=== PATIENT | male | born 1960 | race Caucasian/White ===

== ENCOUNTER 2020-06-08 18:50 | Inpatient (IN) | payer BC, OTHER ==
[~2020-06-08 18:50] MED LIST: Iopamidol 370 76% 100 ML VIAL ONE; Iopamidol 370 76% 50 ML VIAL FS ONE
[2020-06-08] MEDS ORDERED: Heparin 25,000 units/D5W 0 ML ONE (19:12)
[2020-06-08] MEDS ORDERED: TICAGRELOR 90 MG TABLET ONE (19:17)
[2020-06-08] MEDS ORDERED: Heparin 10,000 UNITS/ 10 ML VIAL ONE (19:31)
[2020-06-08] MEDS ORDERED: Acetaminophen/Codeine 30-300mg Tablet PO PRN (19:43)
[2020-06-08] MEDS ORDERED: Mag-Al 1200 mg/1200 mg/30 ML UDCUP PO PRN (19:43)
[2020-06-08] MEDS ORDERED: Milk Of Magnesia 30 ML UDCUP PO PRN (19:43)
[2020-06-08] MEDS ORDERED: Nitroglycerin 0.4 MG TAB (25 Tab Bottle) SL PRN (19:43)
[2020-06-08] MEDS ORDERED: traMADol HCl 50 MG TAB PO PRN (19:43)
[2020-06-08] MEDS ORDERED: Morphine 2 MG/ML VIAL SLOW IVP PRN (19:43)
[2020-06-08] MEDS ORDERED: Zolpidem Tartrate 5 MG TAB PO PRN (19:43)
[2020-06-08] MEDS ORDERED: Sodium Chloride 0.9% 500 ML IV SCH (20:00)
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
[2020-06-08 22:15] LABS: #Basophils 0.1 thou/uL (0.0-0.2); #Lymphocytes 1.5 thou/uL (1.20-3.40); #Monocytes 0.5 thou/uL (0.11-0.59); #Neutrophils 15.3 thou/uL (1.40-6.50); %Basophils 0.3 % (0.0-1.0); %Eosinophils 0.1 % (0.0-10.0); %Lymphocytes 8.8 % (21.0-51.0); %Neutrophils 87.8 % (42.0-75.0); Hemoglobin 13.9 g/dL (14.0-18.0); Mean Corpuscular HGB CONC 33.2 g/dL (32.0-36.0); Mean Corpuscular Hemoglobin 29.9 pg (27.0-31.0); Mean Corpuscular Volume 90.1 fL (78.0-98.0); Mean Platelet Volume 8.2 fL (7.4-10.4); Platelet Count 212 thou/uL (130-400); RBC Distribution Width 12.6 % (11.5-14.5); Red Blood Cell (RBC) Count 4.64 mill/uL (4.70-6.10); White Blood Cell (WBC) Count 17.5 thou/uL (4.8-10.8)
[2020-06-08 22:37] LABS: ALT (SGPT) 37 U/L (8-55); AST (SGOT) 39 U/L (5-34); Albumin 3.5 g/dL (3.4-4.8); Alkaline Phosphatase 79 U/L (40-110); Anion Gap 12 mmol/L (10-20); BUN (Urea Nitrogen) 13 mg/dL (8.4-25.7); Bilirubin, Total 0.4 mg/dL (0.2-1.2); Calc. Creatinine Clearance 0 mL/min (70-130); Calcium 7.8 mg/dL (7.8-10.44); Carbon Dioxide 23 mmol/L (23-31); Chloride 107 mmol/L (98-107); Globulin 2.3 g/dL (2.4-3.5); Glucose 111 mg/dL (80-115); Potassium 4.3 mmol/L (3.5-5.1); Protein, Total 5.8 g/dL (5.8-8.1); Sodium 138 mmol/L (136-145)
[2020-06-08 23:02] LABS: CKMB 15.9 ng/mL (0-6.6); Troponin I 0.827 ng/mL (< 0.028)
--- NOTE | 2020-06-08 23:31 | RAD ---
Chest one view HISTORY: Chest pain. FINDINGS: Cardiac silhouette is magnified by projection. Pulmonary vasculature is unremarkable. Mediastinum is midline. No airspace consolidation or evidence of pneumothorax. Left apex is partially excluded. IMPRESSION : No abnormalities are demonstrated.
[2020-06-09 05:28] LABS: #Lymphocytes 1.3 thou/uL (1.20-3.40); #Monocytes 0.8 thou/uL (0.11-0.59); #Neutrophils 11.5 thou/uL (1.40-6.50); %Basophils 0.1 % (0.0-1.0); %Eosinophils 0.1 % (0.0-10.0); %Lymphocytes 9.4 % (21.0-51.0); %Monocytes 6.1 % (0.0-10.0); %Neutrophils 84.3 % (42.0-75.0); Hemoglobin 13.6 g/dL (14.0-18.0); Mean Corpuscular HGB CONC 33.1 g/dL (32.0-36.0); Mean Corpuscular Hemoglobin 29.8 pg (27.0-31.0); Mean Corpuscular Volume 89.8 fL (78.0-98.0); Mean Platelet Volume 8.4 fL (7.4-10.4); Platelet Count 208 thou/uL (130-400); RBC Distribution Width 12.6 % (11.5-14.5); Red Blood Cell (RBC) Count 4.58 mill/uL (4.70-6.10); White Blood Cell (WBC) Count 13.7 thou/uL (4.8-10.8)
[2020-06-09 05:49] LABS: ALT (SGPT) 41 U/L (8-55); AST (SGOT) 71 U/L (5-34); Albumin 3.6 g/dL (3.4-4.8); Alkaline Phosphatase 76 U/L (40-110); Anion Gap 13 mmol/L (10-20); BUN (Urea Nitrogen) 13 mg/dL (8.4-25.7); Bilirubin, Total 0.5 mg/dL (0.2-1.2); Calc. Creatinine Clearance 0 mL/min (70-130); Calcium 8.1 mg/dL (7.8-10.44); Carbon Dioxide 21 mmol/L (23-31); Cardiac Risk 4.3 (Less than 4.5); Chloride 105 mmol/L (98-107); Cholesterol 190 mg/dl (< 200 Desired); Globulin 2.3 g/dL (2.4-3.5); Glucose 114 mg/dL (80-115); HDL Cholesterol 44 mg/dL (>60 Neg Risk); LDL Cholesterol, Calculated 126 mg/dL; Protein, Total 5.9 g/dL (5.8-8.1); Sodium 135 mmol/L (136-145); Triglycerides 99 mg/dL (Less than 150)
[2020-06-09 05:55] LABS: CKMB 137.5 ng/mL (0-6.6); Troponin I 6.073 ng/mL (< 0.028)
[2020-06-09 11:03] LABS: CKMB 259.1 ng/mL (0-6.6)
[2020-06-09] MEDS ORDERED: Iopamidol-370 76% 500 ML 1 ML ONE (11:17)
[2020-06-09] MEDS: FLUoxetine HCl 20 MG CAP PO SCH (11:40)
[2020-06-09] MEDS: Aspirin Chewable 81 MG TAB PO SCH ×2 (12:45→17:20)
[2020-06-09] MEDS ORDERED: Aspirin Chewable 81 MG TAB ONE (12:49)
--- NOTE | 2020-06-09 13:54 | PDOC.CPN ---
- Subjective Date: 06/09/20 Time: 13:50 Interval history: He is doing better today. No angina. no SOB. HR borderline low and in the 40's while sleeping but he is in sinus. - Review of Systems General: denies: fever/chills, weight/appetite/sleep changes, night sweats, fatigue Respiratory: denies: cough, congestion, shortness of breath, exercise intolerance Cardiovascular: denies: chest pain, palpitation, edema, paroxysmal nocturnal dyspnea, orthopnea Gastrointestinal: denies: nausea, vomiting, diarrhea, constipation, abd pain, GI bleeding Musculoskeletal: denies: pain, tenderness, stiffness, swelling, arthritis/arthralgias Neurological: denies: numbness, syncope, seizure, weakness - Objective Allergies/Adverse Reactions: Allergies Allergy/AdvReac Type Severity Reaction Status Date / Time Penicillins Allergy Unverified 06/08/20 22:01 Visit Medications: Current Medications Acetaminophen/Codeine Phosphate (Acetaminophen/Codeine 30-300mg Tablet) 1 tab PO Q4H PRN PRN Reason: Mild Pain (1-3) Al Hydroxide/Mg Hydroxide (Mag-Al 1200 Mg/1200 Mg/30 Ml Udcup) 30 ml PO Q3H PRN PRN Reason: Indigestion Aspirin (Aspirin Chewable 81 Mg Tab) 81 mg PO DAILY [facility] Last Admin: 06/09/20 12:45 Dose: 81 mg Documented by: Atorvastatin Calcium (Atorvastatin Calcium 40 Mg Tab) 80 mg PO HS [facility] Fluoxetine HCl (Fluoxetine Hcl 20 Mg Cap) 40 mg PO DAILY [facility] Last Admin: 06/09/20 11:40 Dose: 40 mg Documented by: Magnesium Hydroxide (Milk Of Magnesia 30 Ml Udcup) 30 ml PO Q12H PRN PRN Reason: Constipation Morphine Sulfate (Morphine 2 Mg/Ml Vial) 2 mg SLOW IVP Q4H PRN PRN Reason: Moderate Chest Pain (4-6) Nitroglycerin (Nitroglycerin 0.4 Mg Tab (25 Tab Bottle)) 0.4 mg SL Q5MIN PRN PRN Reason: Chest Pain Ticagrelor (Ticagrelor 90 Mg Tablet) 90 mg PO BID [facility] Tramadol HCl (Tramadol Hcl 50 Mg Tab) 50 mg PO Q6H PRN PRN Reason: Pain Zolpidem Tartrate (Zolpidem Tartrate 5 Mg Tab) 5 mg PO HSPRN PRN PRN Reason: Insomnia Vital Signs & Weight: Vital Signs Temp Pulse Pulse Pulse Resp BP BP 06/09/20 12:00 98.8 F 71 16 06/09/20 11:27 56 L 59 L 109/82 117/76 06/09/20 11:00 58 L 26 H 06/09/20 09:00 55 L 17 06/09/20 08:00 97.2 F L 52 L 14 06/09/20 06:17 55 L 18 06/09/20 04:17 97.1 F L 14 BP Pulse Ox Pulse Ox Pulse Ox 06/09/20 12:00 101/80 97 06/09/20 11:27 97 95 06/09/20 11:00 109/82 97 06/09/20 09:00 112/77 98 06/09/20 08:00 93/59 L 98 06/09/20 06:17 100/57 L 06/09/20 04:17 Weight 3.28 oz - Physical Exam General: alert & oriented x3 HEENT: mucus membranes moist Neck: supple neck Cardiac: regular rate and rhythm Lungs: clear to auscultation Neuro: grossly intact Abdomen: active bowel sounds Extremities: no edema Skin: clear Musculoskeletal: no pain - Labs Result Diagrams: 06/09/20 05:01 06/09/20 05:01 Troponin/CKMB CK-MB (CK-2) 259.1 ng/mL (0-6.6) H* 06/09/20 10:02 Troponin I 15.941 ng/mL (< 0.028) H* 06/09/20 10:02 - Telemetry Sinus rhythms and dysrhythmias: sinus bradycardia (< 50 bpm) - Assessment/Plan Assessment/Plan: 1. Inferior STEMI 2. CHB, resolved immediately after revascularization. 3. Frequent PVC's post [place]. 4. Dilated aortic root 5. Tobacco use. PLAN: - Continue Brilinta and ASA 81 - Cannot add BB or ACEI due to low HR and borderline low BP. - Will get CT angio of the chest as his root seemed large on the echo. - Will transfer to telemetry. - Likely home Friday if no major arrhythmias.
--- NOTE | 2020-06-09 16:02 | CT ---
CT ANGIO OF CHEST PERFORMED WITH INTRAVNEOUS CONTRAST ENHANCEMENT WITH 3D RECONSTRUCTIONS: 06/09/20 HISTORY: Recent cardiac stent placement. Abnormal echo showed possible aneurysm in the thoracic aorta. The lungs are clear of any infiltrative process. No pleural effusion or pulmonary nodules. No significant mediastinal or hilar adenopathy. The ascending aorta has a dimension of 3.7 cm. The de scending thoracic aorta measures 2.6 cm. No dissection. The visualized liver parenchyma shows no focal findings. Right and left adrenal glands are normal. IMPRESSION: No evidence of thoracic aneurysm. POS: ELÍAS
[2020-06-09] MEDS: TICAGRELOR 90 MG TABLET PO SCH ×2 (17:20→22:38)
[2020-06-09] MEDS: Atorvastatin Calcium 40 MG TAB PO SCH ×2 (17:20→22:38)
[2020-06-09 18:12] VITALS: BMI 29.2
[2020-06-09] MEDS ORDERED: traZODone HCl 150 MG TAB PO PRN (21:31)
[2020-06-10 05:11] LABS: SARS-CoV-2 PCR by NAA Not Detected (NotDetected)
--- NOTE | 2020-06-10 09:12 | EKG ---
Test Reason : Blood Pressure : / mmHG Vent. Rate : 047 BPM Atrial Rate : 047 BPM P-R Int : 252 ms QRS Dur : 138 ms QT Int : 506 ms P-R-T Axes : 066 039 073 degrees QTc Int : 447 ms Marked sinus bradycardia with 1st degree A-V block Right bundle branch block Abnormal ECG No previous ECGs available Confirmed by MARTIN MARQUES, DR. Cage ([id number]) on 06/10/2020 9:11:42 AM Referred By: SABRA Confirmed By:DR. Fauzia SALAZAR MD
[2020-06-10] MEDS: Aspirin Chewable 81 MG TAB PO SCH (09:24)
[2020-06-10] MEDS: TICAGRELOR 90 MG TABLET PO SCH ×2 (09:24→21:23)
[2020-06-10] MEDS: FLUoxetine HCl 20 MG CAP PO SCH (09:24)
--- NOTE | 2020-06-10 10:43 | PDOC.CPN ---
- Subjective Date: 06/10/20 Time: 09:30 Interval history: No complaints. No overnight events. Feels great. - Review of Systems General: denies: fever/chills, weight/appetite/sleep changes, night sweats, fatigue Respiratory: denies: cough, congestion, shortness of breath, exercise intolerance Cardiovascular: denies: chest pain, palpitation, edema, paroxysmal nocturnal dyspnea, orthopnea Gastrointestinal: denies: nausea, vomiting, diarrhea, constipation, abd pain, GI bleeding Musculoskeletal: denies: pain, tenderness, stiffness, swelling, arthritis/arthr algias Neurological: denies: numbness, syncope, seizure, weakness - Objective Allergies/Adverse Reactions: Allergies Allergy/AdvReac Type Severity Reaction Status Date / Time Penicillins Allergy Unknown Verified 06/09/20 18:14 Sulfa (Sulfonamide Allergy Verified 06/09/20 18:12 Antibiotics) Visit Medications: Current Medications Acetaminophen/Codeine Phosphate (Acetaminophen/Codeine 30-300mg Tablet) 1 tab PO Q4H PRN PRN Reason: Mild Pain (1-3) Al Hydroxide/Mg Hydroxide (Mag-Al 1200 Mg/1200 Mg/30 Ml Udcup) 30 ml PO Q3H PRN PRN Reason: Indigestion Aspirin (Aspirin Chewable 81 Mg Tab) 81 mg PO DAILY [facility] Last Admin: 06/10/20 09:24 Dose: 81 mg Documented by: Atorvastatin Calcium (Atorvastatin Calcium 40 Mg Tab) 80 mg PO [facility] Last Admin: 06/09/20 22:38 Dose: 80 mg Documented by: Fluoxetine HCl (Fluoxetine Hcl 20 Mg Cap) 40 mg PO DAILY [facility] Last Admin: 06/10/20 09:24 Dose: 40 mg Documented by: Magnesium Hydroxide (Milk Of Magnesia 30 Ml Udcup) 30 ml PO Q12H PRN PRN Reason: Constipation Morphine Sulfate (Morphine 2 Mg/Ml Vial) 2 mg SLOW IVP Q4H PRN PRN Reason: Moderate Chest Pain (4-6) Nitroglycerin (Nitroglycerin 0.4 Mg Tab (25 Tab Bottle)) 0.4 mg SL Q5MIN PRN PRN Reason: Chest Pain Ticagrelor (Ticagrelor 90 Mg Tablet) 90 mg PO BID [facility] Last Admin: 06/10/20 09:24 Dose: 90 mg Documented by: Tramadol HCl (Tramadol Hcl 50 Mg Tab) 50 mg PO Q6H PRN PRN Reason: Pain Trazodone HCl (Trazodone Hcl 150 Mg Tab) 150 mg PO HS PRN PRN Reason: Insomnia Last Admin: 06/09/20 22:39 Dose: 150 mg Documented by: Zolpidem Tartrate (Zolpidem Tartrate 5 Mg Tab) 5 mg PO HSPRN PRN PRN Reason: Insomnia Vital Signs & Weight: Vital Signs Temp Pulse Resp BP Pulse Ox 06/10/20 08:00 98.7 F 83 16 120/61 96 06/10/20 03:35 99.6 F 83 18 112/70 95 Weight 204 lb - Physical Exam General: alert & oriented x3, appears well, no apparent distress HEENT: mucus membranes moist Neck: supple neck Cardiac: regular rate and rhythm, no murmur Lungs: clear to auscultation Neuro: grossly intact Abdomen: soft, non-tender Extremities: no cyanosis, no clubbing, no edema Skin: clear - Labs Result Diagrams: 06/09/20 05:01 06/09/20 05:01 Troponin/CKMB CK-MB (CK-2) 259.1 ng/mL (0-6.6) H* 06/09/20 10:02 Troponin I 15.941 ng/mL (< 0.028) H* 06/09/20 10:02 - Telemetry Sinus rhythms and dysrhythmias: sinus rhythm - Assessment/Plan Assessment/Plan: 1. Inferior STEMI 2. CHB, resolved immediately after revascularization. 3. CAD s/p PVI/SCOTTIE - RCA 4. Frequent PVC's post [place]. 5. Dilated aortic root 6. Tobacco use. doing well overall. Up walking regularly. No arrhythmias or nancy overnight. CTA with dilated aortic root, but no aneurysm. Will monitor today and if remains stable d/c tomorrow.
[2020-06-10] MEDS: Atorvastatin Calcium 40 MG TAB PO SCH (21:20)
[2020-06-11] MEDS: TICAGRELOR 90 MG TABLET PO SCH (09:17)
[2020-06-11] MEDS: Aspirin Chewable 81 MG TAB PO SCH (09:17)
[2020-06-11] MEDS: FLUoxetine HCl 20 MG CAP PO SCH (09:17)
--- NOTE | 2020-06-11 10:32 | PDOC.CPN ---
- Subjective Date: 06/11/20 Time: 09:15 Interval history: Patient feels good. No complaints overnight. Rhythm stable. - Review of Systems General: denies: fever/chills, weight/appetite/sleep changes, night sweats, fatigue Respiratory: denies: cough, congestion, shortness of breath, exercise intolerance Cardiovascular: denies: chest pain, palpitation, edema, paroxysmal nocturnal dyspnea, orthopnea Gastrointestinal: denies: nausea, vomiting, diarrhea, constipation, abd pain, GI bleeding Musculoskeletal: denies: pain, tenderness, stiffness, swelling, art hritis/arthralgias Neurological: denies: numbness, syncope, seizure, weakness - Objective Allergies/Adverse Reactions: Allergies Allergy/AdvReac Type Severity Reaction Status Date / Time Penicillins Allergy Unknown Verified 06/09/20 18:14 Sulfa (Sulfonamide Allergy Verified 06/09/20 18:12 Antibiotics) Visit Medications: Current Medications Acetaminophen/Codeine Phosphate (Acetaminophen/Codeine 30-300mg Tablet) 1 tab PO Q4H PRN PRN Reason: Mild Pain (1-3) Al Hydroxide/Mg Hydroxide (Mag-Al 1200 Mg/1200 Mg/30 Ml Udcup) 30 ml PO Q3H PRN PRN Reason: Indigestion Aspirin (Aspirin Chewable 81 Mg Tab) 81 mg PO DAILY [facility] Last Admin: 06/11/20 09:17 Dose: 81 mg Documented by: Atorvastatin Calcium (Atorvastatin Calcium 40 Mg Tab) 80 mg PO [facility] Last Admin: 06/10/20 21:20 Dose: 80 mg Documented by: Fluoxetine HCl (Fluoxetine Hcl 20 Mg Cap) 40 mg PO DAILY [facility] Last Admin: 06/11/20 09:17 Dose: 40 mg Documented by: Magnesium Hydroxide (Milk Of Magnesia 30 Ml Udcup) 30 ml PO Q12H PRN PRN Reason: Constipation Morphine Sulfate (Morphine 2 Mg/Ml Vial) 2 mg SLOW IVP Q4H PRN PRN Reason: Moderate Chest Pain (4-6) Nitroglycerin (Nitroglycerin 0.4 Mg Tab (25 Tab Bottle)) 0.4 mg SL Q5MIN PRN PRN Reason: Chest Pain Ticagrelor (Ticagrelor 90 Mg Tablet) 90 mg PO BID [facility] Last Admin: 06/11/20 09:17 Dose: 90 mg Documented by: Tramadol HCl (Tramadol Hcl 50 Mg Tab) 50 mg PO Q6H PRN PRN Reason: Pain Trazodone HCl (Trazodone Hcl 150 Mg Tab) 150 mg PO HS PRN PRN Reason: Insomnia Last Admin: 06/09/20 22:39 Dose: 150 mg Documented by: Zolpidem Tartrate (Zolpidem Tartrate 5 Mg Tab) 5 mg PO HSPRN PRN PRN Reason: Insomnia Vital Signs & Weight: Vital Signs Temp Pulse Resp BP Pulse Ox 06/11/20 07:42 97.9 F 74 16 101/70 96 06/11/20 03:23 99.0 F 81 20 101/66 93 L Weight 202 lb 1.6 oz - Physical Exam General: alert & oriented x3, appears well, no apparent distress HEENT: mucus membranes moist Neck: supple neck Cardiac: regular rate and rhythm, no murmur Lungs: clear to auscultation, no wheeze, rales, rhonchi Neuro: grossly intact Abdomen: soft, non-tender Musculoskeletal: no pain - Labs Result Diagrams: 06/09/20 05:01 06/09/20 05:01 Troponin/CKMB CK-MB (CK-2) 259.1 ng/mL (0-6.6) H* 06/09/20 10:02 Troponin I 15.941 ng/mL (< 0.028) H* 06/09/20 10:02 - Assessment/Plan Assessment/Plan: 1. Inferior STEMI 2. CHB, resolved immediately after revascularization. 3. CAD s/p PVI/SCOTTIE - RCA 4. Frequent PVC's post [place]. 5. Dilated aortic root 6. Tobacco use. Stable. Ok for discharge. No bblocker given history of CHB and nancy. Will arrange EVR as outpatient and add at that time. No driving for 3 months.
[2020-06-11 11:36] VITALS: BP 110/70; TEMP 97.2
== END 2020-06-11 13:32 | disposition home or self-care (01) | DRG 247 ==
LOC: SDC 18:50 → ERS 18:50 → PACU-TCU 19:13 → EDSTATUS 21:37 → 2NO 06-09 17:31
PROVIDERS: ADMIT Internal Medicine Cardiovascular Disease; ATTEND Internal Medicine Cardiovascular Disease
PROC: B2111ZZ Fluoroscopy of Multiple Coronary Arteries using Low Osmolar Contrast (ICD-10-PCS; principal; 2020-06-08)
PROC: 027034Z Dilation of Coronary Artery, One Artery with Drug-eluting Intraluminal Device, Percutaneous Approach (ICD-10-PCS; 2020-06-08)
PROC: B2151ZZ Fluoroscopy of Left Heart using Low Osmolar Contrast (ICD-10-PCS; 2020-06-08)
PROC: 4A023N7 Measurement of Cardiac Sampling and Pressure, Left Heart, Percutaneous Approach (ICD-10-PCS; 2020-06-08)
PROC: 02C03ZZ Extirpation of Matter from Coronary Artery, One Artery, Percutaneous Approach (ICD-10-PCS; 2020-06-08)
DX: I21.19 ST elevation (STEMI) myocardial infarction involving other coronary artery of inferior wall (principal); I44.2 Atrioventricular block, complete; J44.9 Chronic obstructive pulmonary disease, unspecified; F41.9 Anxiety disorder, unspecified; F32.9 Major depressive disorder, single episode, unspecified; M19.90 Unspecified osteoarthritis, unspecified site; I25.10 Atherosclerotic heart disease of native coronary artery without angina pectoris; F17.200 Nicotine dependence, unspecified, uncomplicated; Z20.822 Contact with and (suspected) exposure to COVID-19; Z79.51 Long term (current) use of inhaled steroids; Z79.82 Long term (current) use of aspirin; Z79.899 Other long term (current) drug therapy; Z88.0 Allergy status to penicillin; Z88.2 Allergy status to sulfonamides
CPT/HCPCS: 36415; 71045; 71275; 76942; 80053; 80061; 82553; 83880; 84443; 84484; 85025; 85347; 87635; 92941; 93005; 93010; 93306; 93458; 93798; 97139; C1760; C1874; C9606; J1644; Q9967; U0003; U0005

== ENCOUNTER 2020-07-12 15:04 | Inpatient (IN) | payer OTHER ==
[2020-07-12 15:52] LABS: #Basophils 0.1 thou/uL (0.0-0.2); #Eosinphils 0.1 thou/uL (0.0-0.7); #Lymphocytes 1.8 thou/uL (1.20-3.40); #Monocytes 0.9 thou/uL (0.11-0.59); #Neutrophils 9.4 thou/uL (1.40-6.50); %Basophils 0.7 % (0.0-1.0); %Lymphocytes 14.4 % (21.0-51.0); %Monocytes 7.2 % (0.0-10.0); %Neutrophils 76.8 % (42.0-75.0); Hemoglobin 15.3 g/dL (14.0-18.0); Mean Corpuscular HGB CONC 32.2 g/dL (32.0-36.0); Mean Corpuscular Hemoglobin 28.7 pg (27.0-31.0); Mean Platelet Volume 8.5 fL (7.4-10.4); Platelet Count 195 thou/uL (130-400); RBC Distribution Width 12.6 % (11.5-14.5); Red Blood Cell (RBC) Count 5.33 mill/uL (4.70-6.10); White Blood Cell (WBC) Count 12.3 thou/uL (4.8-10.8)
[2020-07-12 16:14] LABS: ALT (SGPT) 36 U/L (8-55); AST (SGOT) 27 U/L (5-34); Albumin 4.3 g/dL (3.4-4.8); Alkaline Phosphatase 127 U/L (40-110); Anion Gap 13 mmol/L (10-20); BUN (Urea Nitrogen) 13 mg/dL (8.4-25.7); Bilirubin, Total 0.4 mg/dL (0.2-1.2); Calc. Creatinine Clearance 0 mL/min (70-130); Calcium 9.4 mg/dL (7.8-10.44); Carbon Dioxide 27 mmol/L (23-31); Chloride 102 mmol/L (98-107); Glucose 95 mg/dL (80-115); Potassium 4.1 mmol/L (3.5-5.1); Protein, Total 7.3 g/dL (5.8-8.1); Sodium 138 mmol/L (136-145)
[2020-07-12 18:20] LABS: Bilirubin Negative (Negative); Blood, Urine Negative (Negative); Clarity Clear (Clear); Glucose, Urine (Dipstick) Normal (Negative); Ketone, Urine Negative (Negative); Leukocyte Negative Leu/uL (Negative); Nitrite Negative (Negative); Protein, Urine (Dipstick) Negative (Neg-Trace); Specific Gravity, Urine 1.009 (1.002-1.036); Urobilinogen Normal mg/dL (Less than 2); pH, Urine 6.5 (5.0-9.0)
[2020-07-12 18:30] LABS: Amphetamine Not Detected (NotDetected); Barbiturates Screen Not Detected (NotDetected); Benzodiazepine Screen Not Detected (NotDetected); Cocaine Metabolite Screen Not Detected (NotDetected); Medtox Control Line Valid? VALID (VALID); Medtox Reader # READER 4; Methadone Not Detected (NotDetected); Methamphetamine Not Detected (NotDetected); Opiate Screen Not Detected (NotDetected); Oxycodone Screen Not Detected (NotDetected); Phencyclidine (PCP) Not Detected (NotDetected); THC/Cannabinoid Screen Not Detected (NotDetected); Tricyclic Screen Not Detected (NotDetected)
[2020-07-12 18:50] LABS: CKMB 2.7 ng/mL (0-6.6)
[2020-07-12 22:55] VITALS: BMI 29.4
[2020-07-12 23:24] LABS: Troponin I 0.018 ng/mL (< 0.028)
[2020-07-13] MEDS ORDERED: Acetaminophen 650 MG Suppository PR PRN (01:21)
[2020-07-13] MEDS ORDERED: Acetaminophen 325 MG TAB PO PRN (01:21)
[2020-07-13 01:43] LABS: Troponin I 0.015 ng/mL (< 0.028)
[2020-07-13] MEDS ORDERED: Albuterol 200 PUFF (6.7GM INHALER) INH PRN (04:05)
[2020-07-13 05:06] LABS: #Basophils 0.1 thou/uL (0.0-0.2); #Eosinphils 0.2 thou/uL (0.0-0.7); #Lymphocytes 2.5 thou/uL (1.20-3.40); #Monocytes 0.8 thou/uL (0.11-0.59); #Neutrophils 4.2 thou/uL (1.40-6.50); %Eosinophils 2.2 % (0.0-10.0); %Lymphocytes 32.7 % (21.0-51.0); %Monocytes 9.8 % (0.0-10.0); %Neutrophils 54.3 % (42.0-75.0); Hemoglobin 14.4 g/dL (14.0-18.0); Mean Corpuscular Hemoglobin 29.5 pg (27.0-31.0); Mean Corpuscular Volume 89.4 fL (78.0-98.0); Mean Platelet Volume 8.5 fL (7.4-10.4); Platelet Count 182 thou/uL (130-400); RBC Distribution Width 12.4 % (11.5-14.5); Red Blood Cell (RBC) Count 4.87 mill/uL (4.70-6.10); White Blood Cell (WBC) Count 7.7 thou/uL (4.8-10.8)
[2020-07-13 05:27] LABS: Anion Gap 11 mmol/L (10-20); BUN (Urea Nitrogen) 14 mg/dL (8.4-25.7); Calc. Creatinine Clearance 123 mL/min (70-130); Calcium 8.7 mg/dL (7.8-10.44); Carbon Dioxide 26 mmol/L (23-31); Chloride 105 mmol/L (98-107); Glucose 106 mg/dL (80-115); Magnesium 1.9 mg/dL (1.6-2.6); Potassium 3.5 mmol/L (3.5-5.1); Sodium 138 mmol/L (136-145)
[2020-07-13 05:51] LABS: SARS-CoV-2 PCR by NAA Not Detected (NotDetected)
[2020-07-13] MEDS: TICAGRELOR 90 MG TABLET PO SCH ×2 (08:16→20:28)
[2020-07-13] MEDS: Aspirin Chewable 81 MG TAB PO SCH (09:00)
[2020-07-13] MEDS ORDERED: Non-Formulary Item 1 EACH (Fluoxetine Hcl [Fluoxetine Hcl] 60 MG Tablet) PO SCH (09:00)
[2020-07-13] MEDS: FLUoxetine HCl 20 MG CAP PO SCH (09:00)
[2020-07-13] MEDS: Atorvastatin Calcium 40 MG TAB PO SCH (20:28)
[2020-07-14] MEDS: Aspirin Chewable 81 MG TAB PO SCH (08:43)
[2020-07-14] MEDS: TICAGRELOR 90 MG TABLET PO SCH ×2 (08:43→20:10)
[2020-07-14] MEDS: FLUoxetine HCl 20 MG CAP PO SCH (08:43)
[2020-07-14] MEDS ORDERED: Levofloxacin 500 mg/D5W 100 ml Premix Bag ONE (12:43)
[2020-07-14] MEDS ORDERED: Clindamycin/D5W 600 mg/50 ml Premix Bag ONE (12:43)
[2020-07-14] MEDS ORDERED: Lidocaine 1% (PF) 30 ML VIAL ONE (12:58)
[2020-07-14] MEDS ORDERED: Fentanyl 100 MCG/2 ML VIAL ONE (13:51)
[2020-07-14] MEDS ORDERED: Midazolam HCl 2 mg/2 ml Vial ONE ×2 (13:51→14:18)
[2020-07-14] MEDS: Potassium Chloride 20 MEQ TAB PO SCH (16:04)
[2020-07-14] MEDS: Acetaminophen/Codeine 30-300mg Tablet PO PRN ×2 (17:58→23:14)
[2020-07-14] MEDS: Clindamycin 150 MG CAP PO SCH (20:08)
[2020-07-14] MEDS: Atorvastatin Calcium 40 MG TAB PO SCH (20:09)
[2020-07-15] MEDS: TICAGRELOR 90 MG TABLET PO SCH (07:21)
[2020-07-15] MEDS: Potassium Chloride 20 MEQ TAB PO SCH (07:21)
[2020-07-15] MEDS: Acetaminophen/Codeine 30-300mg Tablet PO PRN ×2 (07:22→12:52)
[2020-07-15] MEDS: FLUoxetine HCl 20 MG CAP PO SCH (07:22)
[2020-07-15] MEDS: Aspirin Chewable 81 MG TAB PO SCH (07:22)
[2020-07-15] MEDS: Clindamycin 150 MG CAP PO SCH (07:22)
[2020-07-15 14:44] VITALS: TEMP 98.4
[2020-07-15 14:53] VITALS: BP 119/77
== END 2020-07-15 14:58 | disposition home or self-care (01) | DRG 243 ==
LOC: ERS 15:04 → 2SW 21:53 → OBSVTOIN 07-13 11:08
PROVIDERS: ADMIT Internal Medicine; ATTEND Hospitalist
PROC: 0JH606Z Insertion of Pacemaker, Dual Chamber into Chest Subcutaneous Tissue and Fascia, Open Approach (ICD-10-PCS; principal; 2020-07-14)
PROC: 02HK3JZ Insertion of Pacemaker Lead into Right Ventricle, Percutaneous Approach (ICD-10-PCS; 2020-07-14)
PROC: 02H63JZ Insertion of Pacemaker Lead into Right Atrium, Percutaneous Approach (ICD-10-PCS; 2020-07-14)
DX: R55 Syncope and collapse (principal); I45.2 Bifascicular block; R00.1 Bradycardia, unspecified; I25.10 Atherosclerotic heart disease of native coronary artery without angina pectoris; F41.9 Anxiety disorder, unspecified; R56.9 Unspecified convulsions; F32.9 Major depressive disorder, single episode, unspecified; J44.9 Chronic obstructive pulmonary disease, unspecified; I44.0 Atrioventricular block, first degree; Z20.822 Contact with and (suspected) exposure to COVID-19; I25.2 Old myocardial infarction; Z95.5 Presence of coronary angioplasty implant and graft; Z87.891 Personal history of nicotine dependence; Z88.0 Allergy status to penicillin; Z88.2 Allergy status to sulfonamides
CPT/HCPCS: 33208; 36415; 36416; 70450; 70551; 71045; 71046; 76942; 80048; 80053; 80306; 81003; 82553; 83735; 84146; 84484; 85025; 85379; 87635; 93005; 93306; 93798; 93880; 95712; 95819; 95957; 99152; 99153; C1785; C1898; G0378; J1956; J2001; J2250; J3010; J3370; J3475; J3490; U0003; U0005

== ENCOUNTER 2022-03-04 16:49 | Emergency (ER) | payer OTHER ==
[2022-03-04] MEDS ORDERED: Ondansetron ODT 4 MG TAB ONE (17:34)
[2022-03-04] MEDS ORDERED: Ondansetron PF 4 MG/2 ML Vial ONE (17:35)
[2022-03-04 18:01] LABS: Hemoglobin 14.5 g/dL (14.0-18.0); Mean Corpuscular HGB CONC 32.9 g/dL (32.0-36.0); Mean Corpuscular Hemoglobin 29.7 pg (27.0-31.0); Mean Corpuscular Volume 90.3 fl (78.0-98.0); Mean Platelet Volume 8.7 fL (7.4-10.4); Platelet Count 188 10x3/uL (130-400); RBC Distribution Width 12.5 % (11.5-14.5); Red Blood Cell (RBC) Count 4.88 mill/uL (4.70-6.10); White Blood Cell (WBC) Count 5.3 10x3/uL (4.8-10.8)
[2022-03-04 18:05] LABS: Bilirubin Negative (Negative); Blood, Urine Negative (Negative); Clarity Clear (Clear); Glucose, Urine (Dipstick) Normal (Negative); Ketone, Urine Negative (Negative); Leukocyte Negative Leu/uL (Negative); Nitrite Negative (Negative); Protein, Urine (Dipstick) Negative (Neg-Trace); Specific Gravity, Urine 1.007 (1.002-1.036); Urobilinogen Normal mg/dL (Less than 2); pH, Urine 5.5 (5.0-9.0)
[2022-03-04 18:18] LABS: Band 10 % (5-11); Lymphocytes 17 % (21-51); MDiff Complete? YES; Monocytes 12 % (0-10); Neutrophil 52 % (42-75); Platelet Morphology Comment Appears Adequate; RBC Morphology Normal; Reactive Lymphocytes 8 % (0-10)
[2022-03-04 18:20] LABS: ALT (SGPT) 25 U/L (8-55); AST (SGOT) 27 U/L (5-34); Albumin 4.2 g/dL (3.4-4.8); Alkaline Phosphatase 81 U/L (40-110); Anion Gap 11 mmol/L (10-20); BUN (Urea Nitrogen) 14 mg/dL (8.4-25.7); Bilirubin, Total 0.2 mg/dL (0.2-1.2); Calc. Creatinine Clearance 0 mL/min (70-130); Calcium 9.8 mg/dL (7.8-10.44); Carbon Dioxide 25 mmol/L (23-31); Chloride 101 mmol/L (98-107); Estimated GFR 90; Glucose 82 mg/dL (80-115); Lipase 33 U/L (8-78); Protein, Total 7.2 g/dL (5.8-8.1); Sodium 133 mmol/L (136-145)
== END 2022-03-04 19:27 | disposition home or self-care (01) ==
LOC: ERS 16:49
DX: R55 Syncope and collapse (principal); A08.4 Viral intestinal infection, unspecified; E86.0 Dehydration; Z87.891 Personal history of nicotine dependence
CPT/HCPCS: 71045; 80053; 81003; 83690; 84484; 85025; 93005; 96361; 96374; J2405; Q0162

== ENCOUNTER 2022-11-23 14:07 | Inpatient (IN) | payer BC ==
[2022-11-23 14:42] LABS: #Basophils 0.1 thou/uL (0.0-0.2); #Eosinphils 0.2 thou/uL (0.0-0.7); #Monocytes 0.5 thou/uL (0.11-0.59); %Basophils 0.9 % (0.0-1.0); %Eosinophils 3.1 % (0.0-10.0); %Lymphocytes 28.8 % (21.0-51.0); %Monocytes 7.1 % (0.0-10.0); %Neutrophils 59.7 % (42.0-75.0); Hematocrit 43.1 % (42.0-52.0); Hemoglobin 14.5 g/dL (14.0-18.0); Mean Corpuscular HGB CONC 33.6 g/dL (32.0-36.0); Mean Corpuscular Hemoglobin 29.3 pg (27.0-31.0); Mean Corpuscular Volume 87.1 fl (78.0-98.0); Mean Platelet Volume 10.3 fL (7.4-10.4); Platelet Count 206 10x3/uL (130-400); RBC Distribution Width 12.9 % (11.5-14.5); Red Blood Cell (RBC) Count 4.95 mill/uL (4.70-6.10); White Blood Cell (WBC) Count 6.8 10x3/uL (4.8-10.8)
[2022-11-23] MEDS ORDERED: Aspirin Chewable 81 MG TAB ONE (14:54)
[2022-11-23 15:07] LABS: ALT (SGPT) 35 U/L (8-55); AST (SGOT) 29 U/L (5-34); Albumin 3.9 g/dL (3.4-4.8); Alkaline Phosphatase 95 U/L (40-110); Anion Gap 14 mmol/L (10-20); BUN (Urea Nitrogen) 13 mg/dL (8.4-25.7); Bilirubin, Total 0.3 mg/dL (0.2-1.2); Calc. Creatinine Clearance 0 mL/min (70-130); Calcium 8.9 mg/dL (7.8-10.44); Carbon Dioxide 25 mmol/L (23-31); Chloride 102 mmol/L (98-107); Estimated GFR 81; Globulin 2.6 g/dL (2.4-3.5); Glucose 132 mg/dL (80-115); Lipase 23 U/L (8-78); Potassium 3.5 mmol/L (3.5-5.1); Protein, Total 6.5 g/dL (5.8-8.1); Sodium 137 mmol/L (136-145)
[2022-11-23] MEDS ORDERED: Ondansetron PF 4 MG/2 ML Vial IVP PRN (16:11)
[2022-11-23] MEDS ORDERED: Acetaminophen 325 MG TAB PO PRN (16:11)
[2022-11-23] MEDS ORDERED: Senokot S 8.6-50 MG TAB PO PRN (16:11)
[2022-11-23] MEDS ORDERED: Bisacodyl 5 MG TAB PO PRN (16:11)
[2022-11-23 18:23] VITALS: BMI 29.2
[2022-11-23 19:01] LABS: Troponin I Less than 0.010 ng/mL (< 0.028)
[2022-11-23] MEDS: Atorvastatin Calcium 40 MG TAB PO SCH (20:24)
[2022-11-23 20:49] LABS: Troponin I Less than 0.010 ng/mL (< 0.028)
[2022-11-24 05:27] LABS: #Basophils 0.1 thou/uL (0.0-0.2); #Eosinphils 0.2 thou/uL (0.0-0.7); #Monocytes 0.7 thou/uL (0.11-0.59); #Neutrophils 4.5 thou/uL (1.40-6.50); %Basophils 0.7 % (0.0-1.0); %Eosinophils 2.8 % (0.0-10.0); %Lymphocytes 26.3 % (21.0-51.0); %Monocytes 9.4 % (0.0-10.0); %Neutrophils 60.5 % (42.0-75.0); Hematocrit 46.4 % (42.0-52.0); Hemoglobin 14.8 g/dL (14.0-18.0); Mean Corpuscular HGB CONC 31.9 g/dL (32.0-36.0); Mean Corpuscular Hemoglobin 28.6 pg (27.0-31.0); Mean Corpuscular Volume 89.6 fl (78.0-98.0); Mean Platelet Volume 10.7 fL (7.4-10.4); Platelet Count 203 10x3/uL (130-400); Red Blood Cell (RBC) Count 5.18 mill/uL (4.70-6.10); White Blood Cell (WBC) Count 7.4 10x3/uL (4.8-10.8)
[2022-11-24 05:51] LABS: Anion Gap 11 mmol/L (10-20); BUN (Urea Nitrogen) 13 mg/dL (8.4-25.7); Calc. Creatinine Clearance 101 mL/min (70-130); Calcium 9.1 mg/dL (7.8-10.44); Carbon Dioxide 30 mmol/L (23-31); Chloride 104 mmol/L (98-107); Estimated GFR 84; Glucose 97 mg/dL (80-115); Magnesium 2.7 mg/dL (1.6-2.6); Potassium 4.5 mmol/L (3.5-5.1); Sodium 140 mmol/L (136-145)
[2022-11-24] MEDS ORDERED: Aspirin Chewable 81 MG TAB PO SCH (09:00)
[2022-11-24] MEDS: Lisinopril 2.5 MG TAB PO SCH (09:21)
[2022-11-24] MEDS: Atorvastatin Calcium 40 MG TAB PO SCH (21:07)
[2022-11-25 05:35] LABS: #Basophils 0.1 thou/uL (0.0-0.2); #Eosinphils 0.2 thou/uL (0.0-0.7); #Monocytes 0.7 thou/uL (0.11-0.59); #Neutrophils 4.2 thou/uL (1.40-6.50); %Basophils 0.7 % (0.0-1.0); %Eosinophils 2.6 % (0.0-10.0); %Lymphocytes 26.8 % (21.0-51.0); %Monocytes 10.3 % (0.0-10.0); %Neutrophils 59.3 % (42.0-75.0); Hematocrit 47.3 % (42.0-52.0); Hemoglobin 15.5 g/dL (14.0-18.0); Mean Corpuscular HGB CONC 32.8 g/dL (32.0-36.0); Mean Corpuscular Volume 88.6 fl (78.0-98.0); Mean Platelet Volume 10.8 fL (7.4-10.4); Platelet Count 225 10x3/uL (130-400); RBC Distribution Width 13.2 % (11.5-14.5); Red Blood Cell (RBC) Count 5.34 mill/uL (4.70-6.10)
[2022-11-25 06:00] LABS: Anion Gap 12 mmol/L (10-20); BUN (Urea Nitrogen) 20 mg/dL (8.4-25.7); Calc. Creatinine Clearance 95 mL/min (70-130); Calcium 9.2 mg/dL (7.8-10.44); Carbon Dioxide 25 mmol/L (23-31); Chloride 104 mmol/L (98-107); Estimated GFR 78; Glucose 94 mg/dL (80-115); Magnesium 2.2 mg/dL (1.6-2.6); Potassium 4.1 mmol/L (3.5-5.1); Sodium 137 mmol/L (136-145)
[2022-11-25] MEDS ORDERED: Clopidogrel Bisulfate 75 MG TAB PO SCH (09:00)
[2022-11-25] MEDS: Lisinopril 2.5 MG TAB PO SCH (09:49)
[2022-11-25 12:09] VITALS: TEMP 97.9
[2022-11-25 16:19] VITALS: BP 112/65
[2022-11-25] MEDS ORDERED: Midodrine HCl 5 MG TAB PO SCH (21:00)
== END 2022-11-25 19:28 | disposition home or self-care (01) | DRG 312 ==
LOC: ERS 14:07 → SUATTDRO 14:07 → 2SW 16:13 → OBSVTOIN 11-24 18:08
PROVIDERS: ADMIT Family Medicine; ATTEND Family Medicine
DX: R55 Syncope and collapse (principal); I25.10 Atherosclerotic heart disease of native coronary artery without angina pectoris; F41.9 Anxiety disorder, unspecified; F32.A Depression, unspecified; M19.90 Unspecified osteoarthritis, unspecified site; R00.1 Bradycardia, unspecified; I95.1 Orthostatic hypotension; J44.9 Chronic obstructive pulmonary disease, unspecified; Z95.0 Presence of cardiac pacemaker; Z95.5 Presence of coronary angioplasty implant and graft; I25.2 Old myocardial infarction; Z79.82 Long term (current) use of aspirin; Z88.0 Allergy status to penicillin; Z88.2 Allergy status to sulfonamides; Z79.899 Other long term (current) drug therapy; Z79.02 Long term (current) use of antithrombotics/antiplatelets
CPT/HCPCS: 36415; 70553; 71045; 80048; 80053; 83690; 83735; 84484; 85025; 93005; 95712; 95819; 95957

== ENCOUNTER 2023-06-17 14:27 | Outpatient (CLI) | payer BC | END 2023-06-17 14:28 | disposition home or self-care (01) | LOC: BICRAD 14:27 | PROVIDERS: ATTEND Internal Medicine | DX: R05.9 Cough, unspecified (principal) | CPT/HCPCS: 71046 ==